=== PATIENT | female | born 1985 | race Caucasian/White ===

== ENCOUNTER 2017-12-15 07:16 | Inpatient (IN) | payer BC ==
[2017-12-15] MEDS ORDERED: ceFAZolin 1 GM in Premix Bag 1 BAG IV ONE (07:31)
[2017-12-15] MEDS ORDERED: Sodium Chloride 0.9% 10 ML Syringe FLUSH PRN ×2 (07:31→11:08)
[2017-12-15] MEDS ORDERED: Sodium Chloride 0.9% 2.5 ML Syringe FLUSH PRN ×2 (07:31→11:08)
[2017-12-15] MEDS ORDERED: Oxytocin/0.9 % Sodium Chloride 30 UNIT/500 ML BAG ONE (07:36)
[2017-12-15] MEDS ORDERED: Citric Acid/Sodium Citrate Solution 30 ML Cup PO SCH (07:45)
[2017-12-15] MEDS ORDERED: Oxytocin/0.9 % Sodium Chloride 30 UNIT/500 ML BAG IV SCH (07:45)
[2017-12-15] MEDS: Lactated Ringers 1,000 ML IV SCH ×2 (08:21→09:22)
[2017-12-15] MEDS ORDERED: Ondansetron 4 MG/2 ML SDV ONE (09:05)
[2017-12-15] MEDS ORDERED: Phenylephrine 1% 10 MG/ML SDV ONE (09:05)
[2017-12-15] MEDS ORDERED: ePHEDrine 50 MG/ML SDV ONE (09:05)
[2017-12-15] MEDS ORDERED: Morphine PF 1 MG/ML Amp ONE (09:05)
--- NOTE | 2017-12-15 09:19 | PCM.PREANE ---
Preanesthetic Assessment - Procedure Proposed Procedure: Repeat - Anesthesia/Transfusion/Family Hx Anesthesia History: Prior Anesthesia Without Reaction Family History of Anesthesia Reaction: No Transfusion History: No Prior Transfusion(s) Intubation History: Unknown - Review of Systems General: Other (usu. with ) Pulmonary: No Symptoms Cardiovascular: No Symptoms Gastrointestinal: No Symptoms Neurological: No Symptoms Other: Reports: None - Physical Assessment NPO Status Date: 12/14/17 NPO Status Time: 22:00 Height: 5 ft 5 in Weight: 160 lb ASA Class: 2 Mental Status: Alert & Oriented x3 Airway Class: Mallampati = 1 Dentition: Reports: Normal Dentition Thyro-Mental Finger Breadths: 3 Mouth Opening Finger Breadths: 3 ROM/Head Extension: Full Lungs: Clear to Auscultation, Normal Respiratory Effort Cardiovascular: Regular Rate, Regular Rhythm, No Murmurs - Lab Values: Laboratory Last Values WBC 12.09 K/uL (4.0-11.0) H 12/15/17 08:10 RBC 3.61 M/uL (4.30-5.90) L 12/15/17 08:10 Hgb 11.4 g/dL (12.0-16.0) L 12/15/17 08:10 Hct 32.3 % (36.0-46.0) L 12/15/17 08:10 MCV 89.5 fL (80.0-98.0) 12/15/17 08:10 MCH 31.6 pg (27.0-32.0) 12/15/17 08:10 MCHC 35.3 g/dL (31.0-37.0) 12/15/17 08:10 RDW Std Deviation 40.9 fl (28.0-62.0) 12/15/17 08:10 RDW Coeff of Jewell 13 % (11.0-15.0) 12/15/17 08:10 Plt Count 181 K/uL (150-400) 12/15/17 08:10 MPV 10.00 fL (7.40-12.00) 12/15/17 08:10 Nucleated RBC % 0.0 /100WBC 12/15/17 08:10 Nucleated RBCs # 0 K/uL 12/15/17 08:10 - Allergies Allergies/Adverse Reactions: Allergies Allergy/AdvReac Type Severity Reaction Status Date / Time No Known Allergies Allergy Verified 12/09/17 09:10 - Blood Blood Available: No - Anesthesia Plan Pre-Op Medication Ordered: None - Acknowledgements Anesthesia Type Planned: Spinal Pt an Appropriate Candidate for the Planned Anesthesia: Yes Alternatives and Risks of Anesthesia Discussed w Pt/Guardian: Yes Pt/Guardian Understands and Agrees with Anesthesia Plan: Yes Additional Comments: prior for breech 15 yr ago. 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: Neurological History: Reports: Migraines - Past Surgical History Head Surgeries/Procedures: Reports: None Female Surgical History: Reports: Breast Implant, Section - SUBSTANCE USE Smoking Status *Q: Never Smoker Recreational Drug Use History: No - HOME MEDS Home Medications: Home Meds Ondansetron 4 mg PO ASDIRECTED PRN 12/09/17 [History] PNV95/Ferrous Fumarate/FA [ Vitamin Tablet] 1 tab PO DAILY 12/09/17 [ History] Ranitidine HCl [Zantac 75] 75 - 150 mg PO ASDIRECTED PRN 12/09/17 [History] - CURRENT (IN HOUSE) MEDS Current Meds: Current Medications Citric Acid/Sodium Citrate (Bicitra Solution) 30 ml PO .ONCE EPIFANIO Lactated Ringer's (Ringers, Lactated) 1,000 mls @ 500 mls/hr IV .BOLUS EPIFANIO Last Admin: 12/15/17 08:21 Dose: 500 mls/hr Oxytocin/Sodium Chloride (Oxytocin 30 Unit/500 Ml-Ns) 30 unit in 500 mls @ 250 mls/hr IV TITRATE EPIFANIO Sodium Chloride (Saline Flush) 10 ml FLUSH ASDIRECTED PRN PRN Reason: Keep Vein Open Sodium Chloride (Saline Flush) 2.5 ml FLUSH ASDIRECTED PRN PRN Reason: Keep Vein Open Discontinued Medications Ephedrine Sulfate (Ephedrine Sulfate) Confirm Administered Dose 50 mg .ROUTE .STK-MED ONE Stop: 12/15/17 09:06 Cefazolin Sodium/Dextrose 1 gm (/ Premix) 50 mls @ 100 mls/hr IV ONETIME ONE Stop: 12/15/17 08:00 Oxytocin/Sodium Chloride (Oxytocin 30 Unit/500 Ml-Ns) Confirm Administered Dose 30 unit in 500 mls @ as directed .ROUTE .STK-MED ONE Stop: 12/15/17 07:37 Cefazolin Sodium/Dextrose (Ancef) Confirm Administered Dose 50 mls @ as directed .ROUTE .STK-MED ONE Stop: 12/15/17 09:09 Morphine Sulfate (Duramorph Pf) Confirm Administered Dose 1 mg .ROUTE .STK-MED ONE Stop: 12/15/17 09:06 Ondansetron HCl (Zofran) Confirm Administered Dose 4 mg .ROUTE .STK-MED ONE Stop: 12/15/17 09:06 Phenylephrine HCl (Binu-Synephrine) Confirm Administered Dose 10 mg .ROUTE .STK- MED ONE Stop: 12/15/17 09:06
--- NOTE | 2017-12-15 09:44 | PCM.POSTAN ---
POST ANESTHESIA ASSESSMENT - MENTAL STATUS Mental Status: Alert, Oriented - RESPIRATORY Respiratory Status: Respiratory Rate WNL, Airway Patent, O2 Saturation Stable - CARDIOVASCULAR CV Status: Pulse Rate WNL, Blood Pressure Stable - GASTROINTESTINAL GI Status: No Symptoms - POST OP HYDRATION Hydration Status: Adequate & Stable
[2017-12-15] MEDS ORDERED: Acetaminophen/oxyCODONE 325-5 MG Tab PO PRN ×2 (10:37→11:08)
[2017-12-15] MEDS ORDERED: Nalbuphine 10 MG/ML 10 ML MDV IVPUSH PRN (10:37)
[2017-12-15] MEDS ORDERED: Naloxone 0.4 MG/ML Syringe IVPUSH PRN (10:37)
[2017-12-15] MEDS ORDERED: Bisacodyl 10 MG Supp RECTAL PRN (11:08)
[2017-12-15] MEDS ORDERED: Ibuprofen 800 MG Tab PO PRN (11:08)
[2017-12-15] MEDS ORDERED: diphenhydrAMINE 50 MG/ML SDV IVPUSH PRN (11:08)
[2017-12-15] MEDS ORDERED: Lanolin 100% Cream 7 GM Tube TOP PRN (11:08)
[2017-12-15] MEDS ORDERED: Ondansetron 4 MG/2 ML SDV IV PRN (11:08)
--- NOTE | 2017-12-15 11:14 | PCM.OPNOTE ---
- General Post-Op/Procedure Note Date of Surgery/Procedure: 12/15/17 Operative Procedure(s): Repeat section Findings: Female , wt 3060grams, Apgars 9 and 9. Grossly normal placenta with 3 vessel cord. Normal uterus, tubes and ovaries Pre Op Diagnosis: 39 weeks, Previous , declined TOLAC Post-Op Diagnosis: Same Anesthesia Technique: Spinal Primary Surgeon: Inocencia De La Rosa Fluid Replacement, Intraop: 1,500 Output, Urine Amount: 50 EBL in mLs: 600 Complications: None Condition: Good
[2017-12-15] MEDS ORDERED: Lactated Ringers 1,000 ML IV SCH (11:15)
[2017-12-15] MEDS: Ketorolac 30 MG/ML SDV IVPUSH SCH (11:24)
--- NOTE | 2017-12-15 13:41 | OR ---
SURGEON: Inocencia De La Rosa MD DATE OF PROCEDURE: 12/15/2017 PREOPERATIVE DIAGNOSES: 1. Term at 39 weeks gestation. 2. Previous section, declined trial of labor after section, TOLAC. POSTOPERATIVE DIAGNOSES: 1. Term at 39 weeks gestation. 2. Previous section, declined trial of labor after section, TOLAC. 3. Delivered. PROCEDURE: Repeat low-transverse section via Pfannenstiel. ANESTHESIA: Spinal. ESTIMATED BLOOD LOSS: 600mLs. IV FLUIDS: 1500 mLs crystalloid. URINE OUTPUT: 55 mLs, clear at the end of the procedure. COMPLICATIONS: None. DISPOSITION: Stable to recovery room. FINDINGS: Female infant, weight 3060 g, score 9 and 9 at 1 and 5 minutes respectively. Grossly normal placenta with 3-vessel cord. The uterus, tubes, ovaries appeared grossly normal. INDICATION: The patient is a 32-year-old, G2, P1 who elected to have a section after 1 previous section, declining trial of labor after section. DESCRIPTION OF PROCEDURE: The patient was taken to the operating room where spinal anesthesia was performed and found to be adequate. She was then prepped and draped in sterile fashion in the dorsal supine position with a leftward tilt. Time-out was held. The patient received 2 g of Ancef and SCDs were in place. The Pfannenstiel incision was then made with a scalpel along her old incision and was carried through to the underlying layer of fascia with the scalpel. The fascia was scored in the midline and the incision was extended laterally with the Trotter scissors. The superior aspect of this fascial incision was grasped with Yu clamps, elevated, and underlying rectus muscles were dissected off with the Trotter. In a similar fashion, the inferior aspect of the fascial incision was grasped with Yu clamps, tented, and rectus muscles were dissected off bluntly with the Trotter's. The rectus muscle was then in the midline and the parietal peritoneum was identified and entered sharply. The parietal peritoneum was then extended upwards and downwards with good visualization of the bladder. A self-retaining Brian O retractor was then placed into the abdominal cavity. The vesicouterine peritoneum was identified, picked up, and entered sharply with the Metzenbaum scissors. This was extended laterally and a bladder flap was created digitally. A low-transverse incision was then made on the uterus and extended upwards and downwards bluntly. Clear amniotic fluid was noted. The 's head was then lifted out of the pelvis and delivered atraumatically followed by the shoulders and the rest of the baby without difficulty. The baby was vigorous and cried spontaneously at . Cord was double clamped and cut and the was handed over to the waiting nursery team. Cord blood and gas samples were obtained. The placenta was then removed spontaneously by uterine massage. It appeared appeared to be complete and intact. The uterus was then cleaned of all clots and debris. The hysterotomy was repaired in 2 layers using 0 Vicryl suture. The first layer was repaired in a running locking fashion and a second imbricating layer was performed to obtain excellent hemostasis. The paracolic gutters were cleared of all clots and debris. Copious irrigation was performed. The Brian O retractor was removed from the abdominal cavity. The hysterotomy site was examined and found to be hemostatic. The edges of the parietal peritoneum were identified and this layer was closed en-mass incorporating the muscular layer in a running fashion with 2-0 Vicryl suture. Subfascial tissue was examined and found to have excellent hemostasis. The fascia was reapproximated with 0 Vicryl in a running fashion. The subcuticular tissue was irrigated and made hemostatic with electrocautery. The skin was then closed with subcuticular stitches of 4-0 Monocryl suture. Sponge, lap, instrument, and needle counts were reported as correct at the end of the procedure. The patient tolerated the procedure well and was taken to the recovery room in a stable condition. The baby was taken to the nursery in a stable condition. SHANNON / JEREMÍAS /[id number] JIL
[2017-12-15] MEDS ORDERED: Nalbuphine 10 MG/1 ML Vial IVPUSH PRN (13:56)
[2017-12-15] MEDS ORDERED: Nalbuphine 10 MG/ML 10 ML MDV ONE (14:06)
[2017-12-15] MEDS: Nalbuphine 10 MG/1 ML Vial IVPUSH PRN (14:10)
[2017-12-16] MEDS: Nalbuphine 10 MG/1 ML Vial IVPUSH PRN ×2 (04:25→09:49)
[2017-12-16] MEDS: Ketorolac 30 MG/ML SDV IVPUSH SCH ×3 (04:54→11:40)
[2017-12-16] MEDS: Docusate Sodium 100 MG Cap PO SCH ×3 (04:54→20:42)
--- NOTE | 2017-12-16 07:17 | PCM48HPAN ---
Post Anesthesia Note - EVALUATION WITHIN 48HRS OF ANESTHETIC Vital Signs in Normal Range: Yes Patient Participated in Evaluation: Yes Respiratory Function Stable: Yes Airway Patent: Yes Cardiovascular Function Stable: Yes Hydration Status Stable: Yes Pain Control Satisfactory: Yes Nausea and Vomiting Control Satisfactory: Yes Mental Status Recovered: Yes Resp Rate: 15
--- NOTE | 2017-12-16 08:15 | PCM.PNPP ---
<Mana Carlisle - Last Filed: 12/16/17 08:12> - General Info Date of Service: 12/16/17 Functional Status: Reports: Pain Controlled, Tolerating Diet, Ambulating, Urinating - Review of Systems General: Denies: Fever, Weakness, Fatigue Pulmonary: Denies: Shortness of Breath, Pleuritic Chest Pain, Cough Cardiovascular: Denies: Chest Pain, Palpitations, Dyspnea on Exertion Gastrointestinal: Denies: Abdominal Pain Genitourinary: Denies: Dysuria Psychiatric: Reports: No Symptoms - General Info Date of Service: 12/16/17 - Patient Data Vital Signs - Most Recent: Last Vital Signs Temp 36.8 C 12/16/17 04:00 Pulse 74 12/16/17 06:00 Resp 15 12/16/17 07:17 BP 109/61 12/16/17 04:00 Pulse Ox 93 L 12/16/17 06:00 Weight - Most Recent: 160 lb I&O - Last 24 Hours: Intake & Output 12/15/17 12/16/17 12/16/17 22:59 06:59 14:59 Intake Total 1843 Output Total 775 Balance 1068 Lab Results - Last 24 Hours: Laboratory Results - last 24 hr 12/15/17 12/15/17 12/15/17 Range/Units 08:10 08:14 10:16 WBC 12.09 H (4.0-11.0) K/uL RBC 3.61 L (4.30-5.90) M/uL Hgb 11.4 L (12.0-16.0) g/dL Hct 32.3 L (36.0-46.0) % MCV 89.5 (80.0-98.0) fL MCH 31.6 (27.0-32.0) pg MCHC 35.3 (31.0-37.0) g/dL RDW Std Deviation 40.9 (28.0-62.0) fl RDW Coeff of Jewell 13 (11.0-15.0) % Plt Count 181 (150-400) K/uL MPV 10.00 (7.40-12.00) fL Nucleated RBC % 0.0 /100WBC Nucleated RBCs # 0 K/uL Cord ABG pH 7.283 (7.18-7.38) Cord ABG Base Excess -6 (-10--2) Cord VBG pH 7.355 (7.25-7.45) Cord VBG Base Excess -6 (-10--2) Blood Type O NEGATIVE Antibody Screen POSITIVE Antibody Identification Anti-D 12/16/17 Range/Units 05:35 WBC (4.0-11.0) K/uL RBC (4.30-5.90) M/uL Hgb 9.9 L (12.0-16.0) g/dL Hct 27.8 L (36.0-46.0) % MCV (80.0-98.0) fL MCH (27.0-32.0) pg MCHC (31.0-37.0) g/dL RDW Std Deviation (28.0-62.0) fl RDW Coeff of Jewell (11.0-15.0) % Plt Count (150-400) K/uL MPV (7.40-12.00) fL Nucleated RBC % /100WBC Nucleated RBCs # K/uL Cord ABG pH (7.18-7.38) Cord ABG Base Excess (-10--2) Cord VBG pH (7.25-7.45) Cord VBG Base Excess (-10--2) Blood Type Antibody Screen Antibody Identification Med Orders - Current: Current Medications Bisacodyl (Dulcolax) 10 mg RECTAL .ONCE PRN PRN Reason: Constipation Diphenhydramine HCl (Benadryl) 25 mg IVPUSH Q6H PRN PRN Reason: Itching or Nausea Last Admin: 12/15/17 12:31 Dose: 25 mg Docusate Sodium (Colace) 100 mg PO BID [facility] Last Admin: 12/16/17 04:54 Dose: Not Given Emollient Ointment (Lansinoh Hpa) 0 gm TOP ASDIRECTED PRN PRN Reason: Sore Nipples Lactated Ringer's (Ringers, Lactated) 1,000 mls @ 125 mls/hr IV ASDIRECTED EPIFANIO Ibuprofen (Motrin) 800 mg PO Q8H PRN PRN Reason: mild pain or fever Ketorolac Tromethamine (Toradol) 30 mg IVPUSH Q6H [facility] Stop: 12/16/17 11:16 Last Admin: 12/16/17 05:18 Dose: 30 mg Nalbuphine HCl (Nubain) 5 mg IVPUSH Q3H PRN PRN Reason: Itching/Pain Last Admin: 12/16/17 04:25 Dose: 5 mg Nalbuphine HCl (Nubain) 5 mg IVPUSH Q3H PRN PRN Reason: Itching Ondansetron HCl (Zofran) 4 mg IV Q4H PRN PRN Reason: Nausea/Vomiting Oxycodone/Acetaminophen (Percocet 325-5 Mg) 1 tab PO Q4HR PRN PRN Reason: Breakthrough Pain Oxycodone/Acetaminophen (Percocet 325-5 Mg) 1 tab PO Q4H PRN PRN Reason: Pain (moderate 4-6) Oxycodone/Acetaminophen (Percocet 325-5 Mg) 2 tab PO Q4H PRN PRN Reason: Pain (moderate 4-6) Sodium Chloride (Saline Flush) 10 ml FLUSH ASDIRECTED PRN PRN Reason: Keep Vein Open Sodium Chloride (Saline Flush) 2.5 ml FLUSH ASDIRECTED PRN PRN Reason: Keep Vein Open Discontinued Medications Citric Acid/Sodium Citrate (Bicitra Solution) 30 ml PO .ONCE EPIFANIO Last Admin: 12/15/17 09:38 Dose: 30 ml Ephedrine Sulfate (Ephedrine Sulfate) Confirm Administered Dose 50 mg .ROUTE .STK-MED ONE Stop: 12/15/17 09:06 Cefazolin Sodium/Dextrose 1 gm (/ Premix) 50 mls @ 100 mls/hr IV ONETIME ONE Stop: 12/15/17 08:00 Last Admin: 12/16/17 04:55 Dose: Not Given Lactated Ringer's (Ringers, Lactated) 1,000 mls @ 500 mls/hr IV .BOLUS EPIFANIO Last Admin: 12/15/17 09:22 Dose: 500 mls/hr Oxytocin/Sodium Chloride (Oxytocin 30 Unit/500 Ml-Ns) 30 unit in 500 mls @ 250 mls/hr IV TITRATE EPIFANIO Oxytocin/Sodium Chloride (Oxytocin 30 Unit/500 Ml-Ns) Confirm Administered Dose 30 unit in 500 mls @ as directed .ROUTE .STK-MED ONE Stop: 12/15/17 07:37 Last Admin: 12/16/17 04:55 Dose: Not Given Cefazolin Sodium/Dextrose (Ancef) Confirm Administered Dose 50 mls @ as directed .ROUTE .STK-MED ONE Stop: 12/15/17 09:09 Lidocaine HCl (Xylocaine-Mpf 1%) 5 ml EPIDUR .STK-MED ONE Stop: 12/15/17 10:03 Morphine Sulfate (Duramorph Pf) Confirm Administered Dose 1 mg .ROUTE .STK-MED ONE Stop: 12/15/17 09:06 Nalbuphine HCl (Nubain) 2.5 mg IVPUSH Q3H PRN PRN Reason: Pruritis Stop: 12/16/17 10:38 Nalbuphine HCl (Nubain) Confirm Administered Dose 100 mg .ROUTE .STK-MED ONE Stop: 12/15/17 14:07 Last Admin: 12/16/17 04:53 Dose: Not Given Naloxone HCl (Narcan) 0.1 mg IVPUSH ONETIME PRN PRN Reason: if RR <6 WITH STIMULATION Stop: 12/16/17 10:38 Ondansetron HCl (Zofran) Confirm Administered Dose 4 mg .ROUTE .STK-MED ONE Stop: 12/15/17 09:06 Phenylephrine HCl (Binu-Synephrine) Confirm Administered Dose 10 mg .ROUTE .STK- MED ONE Stop: 12/15/17 09:06 Sodium Chloride (Saline Flush) 10 ml FLUSH ASDIRECTED PRN PRN Reason: Keep Vein Open Sodium Chloride (Saline Flush) 2.5 ml FLUSH ASDIRECTED PRN PRN Reason: Keep Vein Open - Interaction Infant Disposition, : [place] in Room with Family Interaction: Holding Infant Feeding: Attempted ; Nursed Fair/Poor Support Person: Significant Other - Recovery Exam Fundal Tone: Firm Fundal Level: 2 Fingerbreadths Below Umbilicus Fundal Placement: Midline Lochia Amount: Scant Lochia Color: Rubra/Red Perineum Description: Intact, Minimal Bruising/Swelling Episiotomy/Laceration: None Bladder Status: Indwelling Catheter in Place Urinary Elimination: Indwelling Catheter - Exam General: Alert, Oriented Neck: Supple Lungs: Clear to Auscultation, Normal Respiratory Effort Cardiovascular: Regular Rate, Regular Rhythm GI/Abdominal Exam: Normal Bowel Sounds, Soft, Non-Tender, No Distention Extremities: Normal Inspection, Normal Capillary Refill, Pedal Edema (trace) Skin: Warm, Dry, Intact Psy/Mental Status: Alert, Normal Affect, Normal Mood - Assessment Assessment:: POD #1 s/p RLTCS. Minimal pain and lochia. Breast feeding well. Anticipate discharge tomorrow. - Plan Plan:: Continue routine post-op cares. Aim for discharge home tomorrow. <Inocencia De La Rosa - Last Filed: 12/16/17 08:48> - Patient Data Vital Signs - Most Recent: Last Vital Signs Temp 36.8 C 12/16/17 04:00 Pulse 74 12/16/17 06:00 Resp 15 12/16/17 07:17 BP 109/61 12/16/17 04:00 Pulse Ox 93 L 12/16/17 06:00 I&O - Last 24 Hours: Intake & Output 12/15/17 12/16/17 12/16/17 22:59 06:59 14:59 Intake Total 1843 Output Total 775 Balance 1068 Lab Results - Last 24 Hours: Laboratory Results - last 24 hr 12/15/17 12/15/17 12/16/17 Range/Units 08:14 10:16 05:35 Hgb 9.9 L (12.0-16.0) g/dL Hct 27.8 L (36.0-46.0) % Cord ABG pH 7.283 (7.18-7.38) Cord ABG Base Excess -6 (-10--2) Cord VBG pH 7.355 (7.25-7.45) Cord VBG Base Excess -6 (-10--2) Blood Type O NEGATIVE Antibody Screen POSITIVE Antibody Identification Anti-D Med Orders - Current: Current Medications Bisacodyl (Dulcolax) 10 mg RECTAL .ONCE PRN PRN Reason: Constipation Diphenhydramine HCl (Benadryl) 25 mg IVPUSH Q6H PRN PRN Reason: Itching or Nausea Last Admin: 12/15/17 12:31 Dose: 25 mg Docusate Sodium (Colace) 100 mg PO BID EPIFANIO Last Admin: 12/16/17 04:54 Dose: Not Given Emollient Ointment (Lansinoh Hpa) 0 gm TOP ASDIRECTED PRN PRN Reason: Sore Nipples Lactated Ringer's (Ringers, Lactated) 1,000 mls @ 125 mls/hr IV ASDIRECTED EPIFANIO Ibuprofen (Motrin) 800 mg PO Q8H PRN PRN Reason: mild pain or fever Ketorolac Tromethamine (Toradol) 30 mg IVPUSH Q6H [facility] Stop: 12/16/17 11:16 Last Admin: 12/16/17 05:18 Dose: 30 mg Nalbuphine HCl (Nubain) 5 mg IVPUSH Q3H PRN PRN Reason: Itching/Pain Last Admin: 12/16/17 04:25 Dose: 5 mg Nalbuphine HCl (Nubain) 5 mg IVPUSH Q3H PRN PRN Reason: Itching Ondansetron HCl (Zofran) 4 mg IV Q4H PRN PRN Reason: Nausea/Vomiting Oxycodone/Acetaminophen (Percocet 325-5 Mg) 1 tab PO Q4HR PRN PRN Reason: Breakthrough Pain Oxycodone/Acetaminophen (Percocet 325-5 Mg) 1 tab PO Q4H PRN PRN Reason: Pain (moderate 4-6) Oxycodone/Acetaminophen (Percocet 325-5 Mg) 2 tab PO Q4H PRN PRN Reason: Pain (moderate 4-6) Sodium Chloride (Saline Flush) 10 ml FLUSH ASDIRECTED PRN PRN Reason: Keep Vein Open Sodium Chloride (Saline Flush) 2.5 ml FLUSH ASDIRECTED PRN PRN Reason: Keep Vein Open Discontinued Medications Citric Acid/Sodium Citrate (Bicitra Solution) 30 ml PO .ONCE [facility] Last Admin: 12/15/17 09:38 Dose: 30 ml Ephedrine Sulfate (Ephedrine Sulfate) Confirm Administered Dose 50 mg .ROUTE .STK-MED ONE Stop: 12/15/17 09:06 Cefazolin Sodium/Dextrose 1 gm (/ Premix) 50 mls @ 100 mls/hr IV ONETIME ONE Stop: 12/15/17 08:00 Last Admin: 12/16/17 04:55 Dose: Not Given Lactated Ringer's (Ringers, Lactated) 1,000 mls @ 500 mls/hr IV .BOLUS [facility] Last Admin: 12/15/17 09:22 Dose: 500 mls/hr Oxytocin/Sodium Chloride (Oxytocin 30 Unit/500 Ml-Ns) 30 unit in 500 mls @ 250 mls/hr IV TITRATE EPIFANIO Oxytocin/Sodium Chloride (Oxytocin 30 Unit/500 Ml-Ns) Confirm Administered Dose 30 unit in 500 mls @ as directed .ROUTE .STK-MED ONE Stop: 12/15/17 07:37 Last Admin: 12/16/17 04:55 Dose: Not Given Cefazolin Sodium/Dextrose (Ancef) Confirm Administered Dose 50 mls @ as directed .ROUTE .STK-MED ONE Stop: 12/15/17 09:09 Lidocaine HCl (Xylocaine-Mpf 1%) 5 ml EPIDUR .STK-MED ONE Stop: 12/15/17 10:03 Morphine Sulfate (Duramorph Pf) Confirm Administered Dose 1 mg .ROUTE .STK-MED ONE Stop: 12/15/17 09:06 Nalbuphine HCl (Nubain) 2.5 mg IVPUSH Q3H PRN PRN Reason: Pruritis Stop: 12/16/17 10:38 Nalbuphine HCl (Nubain) Confirm Administered Dose 100 mg .ROUTE .STK-MED ONE Stop: 12/15/17 14:07 Last Admin: 12/16/17 04:53 Dose: Not Given Naloxone HCl (Narcan) 0.1 mg IVPUSH ONETIME PRN PRN Reason: if RR <6 WITH STIMULATION Stop: 12/16/17 10:38 Ondansetron HCl (Zofran) Confirm Administered Dose 4 mg .ROUTE .STK-MED ONE Stop: 12/15/17 09:06 Phenylephrine HCl (Binu-Synephrine) Confirm Administered Dose 10 mg .ROUTE .STViva la Vita- MED ONE Stop: 12/15/17 09:06 Sodium Chloride (Saline Flush) 10 ml FLUSH ASDIRECTED PRN PRN Reason: Keep Vein Open Sodium Chloride (Saline Flush) 2.5 ml FLUSH ASDIRECTED PRN PRN Reason: Keep Vein Open - Infant Interaction Infant Feeding: Attempted ; Nursed Fair/Poor (Baby has a cyst underneath the tonuge) - Problem List & Annotations (1) delivery delivered SNOMED Code(s): 481232309 Code(s): O82 - ENCOUNTER FOR DELIVERY WITHOUT INDICATION Status: Acute Current Visit: Yes - Problem List Review Problem List Initiated/Reviewed/Updated: Yes - My Orders Last 24 Hours: My Active Orders 12/15/17 11:08 Patient Status [ADT] Routine Ambulate [RC] PER UNIT ROUTINE Communication Order [RC] PER UNIT ROUTINE Communication Order [RC] PER UNIT ROUTINE Communication Order [RC] Per Unit Routine May Shower [RC] ASDIRECTED RT Incentive Spirometry [RC] Q2HWA Urinary Catheter Removal [RC] Per Unit Routine Vital Signs [RC] PER UNIT ROUTINE Acetaminophen/oxyCODONE [Percocet 325-5 MG] 1 tab PO Q4H PRN Acetaminophen/oxyCODONE [Percocet 325-5 MG] 2 tab PO Q4H PRN Bisacodyl [Dulcolax] 10 mg RECTAL .ONCE PRN Ibuprofen [Motrin] 800 mg PO Q8H PRN Lanolin [Lansinoh HPA] See Dose Instructions TOP ASDIRECTED PRN Ondansetron [Zofran] 4 mg IV Q4H PRN Sodium Chloride 0.9% [Saline Flush] 10 ml FLUSH ASDIRECTED PRN Sodium Chloride 0.9% [Saline Flush] 2.5 ml FLUSH ASDIRECTED PRN diphenhydrAMINE [Benadryl] 25 mg IVPUSH Q6H PRN Abdominal Binder [OM.PC] Routine Assess Lochia [WOMSER] Per Unit Routine Assess Uterine Involution [WOMSER] Per Unit Routine Breast Pump [WOMSER] Per Unit Routine Peripheral IV Discontinue [OM.PC] Routine Saline Lock Insert [OM.PC] Routine Sequential Compression Device [OM.PC] Per Unit Routine Resuscitation Status Routine 12/15/17 11:09 Intake and Output [RC] Q4H Notify Provider Intake and Out [RC] ASDIRECTED Notify Provider Vital Signs [RC] ASDIRECTED 12/15/17 11:15 Ketorolac [Toradol] 30 mg IVPUSH Q6H Lactated Ringers [Ringers, Lactated] 1,000 ml IV ASDIRECTED 12/15/17 21:00 Docusate Sodium [Colace] 100 mg PO BID 12/15/17 Dinner Regular Diet [DIET]
[2017-12-17] MEDS: Acetaminophen/oxyCODONE 325-5 MG Tab PO PRN ×2 (04:04→11:28)
[2017-12-17] MEDS: Docusate Sodium 100 MG Cap PO SCH (08:16)
--- NOTE | 2017-12-17 09:08 | PCM.PNPP ---
- General Info Date of Service: 12/17/17 Functional Status: Reports: Pain Controlled, Tolerating Diet, Ambulating, Urinating - Review of Systems General: Denies: Fever, Weakness, Malaise, Chills HEENT: Denies: Headaches Pulmonary: Denies: Shortness of Breath, Pleuritic Chest Pain, Cough Cardiovascular: Denies: Chest Pain, Palpitations, Dyspnea on Exertion Gastrointestinal: Reports: Constipation. Denies: Abdominal Pain Genitourinary: Denies: Dysuria, Burning, Flank Pain Musculoskeletal: Reports: No Symptoms Skin: Reports: No Symptoms Neurological: Reports: No Symptoms Psychiatric: Reports: No Symptoms - General Info Date of Service: 12/17/17 - Patient Data Vital Signs - Most Recent: Last Vital Signs Temp 36.0 C 12/17/17 08:00 Pulse 61 12/17/17 08:00 Resp 18 12/17/17 08:00 BP 105/70 12/17/17 08:00 Pulse Ox 100 12/17/17 08:00 Weight - Most Recent: 160 lb I&O - Last 24 Hours: Intake & Output 12/16/17 12/17/17 12/17/17 22:59 06:59 14:59 Intake Total 1600 800 Balance 1600 800 Med Orders - Current: Current Medications Bisacodyl (Dulcolax) 10 mg RECTAL .ONCE PRN PRN Reason: Constipation Diphenhydramine HCl (Benadryl) 25 mg IVPUSH Q6H PRN PRN Reason: Itching or Nausea Last Admin: 12/15/17 12:31 Dose: 25 mg Docusate Sodium (Colace) 100 mg PO BID [facility] Last Admin: 12/17/17 08:16 Dose: Not Given Emollient Ointment (Lansinoh Hpa) 0 gm TOP ASDIRECTED PRN PRN Reason: Sore Nipples Last Admin: 12/16/17 19:30 Dose: 7 gm Lactated Ringer's (Ringers, Lactated) 1,000 mls @ 125 mls/hr IV ASDIRECTED [facility] Ibuprofen (Motrin) 800 mg PO Q8H PRN PRN Reason: mild pain or fever Nalbuphine HCl (Nubain) 5 mg IVPUSH Q3H PRN PRN Reason: Itching/Pain Last Admin: 12/16/17 09:49 Dose: 5 mg Nalbuphine HCl (Nubain) 5 mg IVPUSH Q3H PRN PRN Reason: Itching Ondansetron HCl (Zofran) 4 mg IV Q4H PRN PRN Reason: Nausea/Vomiting Oxycodone/Acetaminophen (Percocet 325-5 Mg) 1 tab PO Q4HR PRN PRN Reason: Breakthrough Pain Last Admin: 12/16/17 19:30 Dose: 1 tab Oxycodone/Acetaminophen (Percocet 325-5 Mg) 1 tab PO Q4H PRN PRN Reason: Pain (moderate 4-6) Last Admin: 12/16/17 15:00 Dose: 1 tab Oxycodone/Acetaminophen (Percocet 325-5 Mg) 2 tab PO Q4H PRN PRN Reason: Pain (moderate 4-6) Last Admin: 12/17/17 04:04 Dose: 2 tab Sodium Chloride (Saline Flush) 10 ml FLUSH ASDIRECTED PRN PRN Reason: Keep Vein Open Sodium Chloride (Saline Flush) 2.5 ml FLUSH ASDIRECTED PRN PRN Reason: Keep Vein Open Discontinued Medications Citric Acid/Sodium Citrate (Bicitra Solution) 30 ml PO .ONCE EPIFANIO Last Admin: 12/15/17 09:38 Dose: 30 ml Ephedrine Sulfate (Ephedrine Sulfate) Confirm Administered Dose 50 mg .ROUTE .STK-MED ONE Stop: 12/15/17 09:06 Cefazolin Sodium/Dextrose 1 gm (/ Premix) 50 mls @ 100 mls/hr IV ONETIME ONE Stop: 12/15/17 08:00 Last Admin: 12/16/17 04:55 Dose: Not Given Lactated Ringer's (Ringers, Lactated) 1,000 mls @ 500 mls/hr IV .BOLUS EPIFANIO Last Admin: 12/15/17 09:22 Dose: 500 mls/hr Oxytocin/Sodium Chloride (Oxytocin 30 Unit/500 Ml-Ns) 30 unit in 500 mls @ 250 mls/hr IV TITRATE EPIFANIO Oxytocin/Sodium Chloride (Oxytocin 30 Unit/500 Ml-Ns) Confirm Administered Dose 30 unit in 500 mls @ as directed .ROUTE .STK-MED ONE Stop: 12/15/17 07:37 Last Admin: 12/16/17 04:55 Dose: Not Given Cefazolin Sodium/Dextrose (Ancef) Confirm Administered Dose 50 mls @ as directed .ROUTE .STK-MED ONE Stop: 12/15/17 09:09 Ketorolac Tromethamine (Toradol) 30 mg IVPUSH Q6H EPIFANIO Stop: 12/16/17 11:16 Last Admin: 12/16/17 11:40 Dose: 30 mg Lidocaine HCl (Xylocaine-Mpf 1%) 5 ml EPIDUR .STK-MED ONE Stop: 12/15/17 10:03 Morphine Sulfate (Duramorph Pf) Confirm Administered Dose 1 mg .ROUTE .STK-MED ONE Stop: 12/15/17 09:06 Nalbuphine HCl (Nubain) 2.5 mg IVPUSH Q3H PRN PRN Reason: Pruritis Stop: 12/16/17 10:38 Nalbuphine HCl (Nubain) Confirm Administered Dose 100 mg .ROUTE .STK-MED ONE Stop: 12/15/17 14:07 Last Admin: 12/16/17 04:53 Dose: Not Given Naloxone HCl (Narcan) 0.1 mg IVPUSH ONETIME PRN PRN Reason: if RR <6 WITH STIMULATION Stop: 12/16/17 10:38 Ondansetron HCl (Zofran) Confirm Administered Dose 4 mg .ROUTE .STK-MED ONE Stop: 12/15/17 09:06 Phenylephrine HCl (Binu-Synephrine) Confirm Administered Dose 10 mg .ROUTE .STK- MED ONE Stop: 12/15/17 09:06 Sodium Chloride (Saline Flush) 10 ml FLUSH ASDIRECTED PRN PRN Reason: Keep Vein Open Sodium Chloride (Saline Flush) 2.5 ml FLUSH ASDIRECTED PRN PRN Reason: Keep Vein Open - Interaction Disposition, : [place] in Room with Family Infant Interaction: Holding Infant Infant Feeding: Attempted ; Nursed Fair/Poor (Baby has a cyst underneath the tonuge) Support Person: Significant Other - Recovery Exam Fundal Tone: Firm Fundal Level: 1 Fingerbreadths Below Umbilicus Fundal Placement: Midline Lochia Amount: Scant Lochia Color: Rubra/Red Perineum Description: Intact, Minimal Bruising/Swelling Episiotomy/Laceration: None Bladder Status: Voiding - Exam General: Alert, Oriented Neck: Supple Lungs: Clear to Auscultation, Normal Respiratory Effort Cardiovascular: Regular Rate, Regular Rhythm GI/Abdominal Exam: Normal Bowel Sounds, Soft, Non-Tender Extremities: Non-Tender, Pedal Edema Wound/Incisions: Healing Well Psy/Mental Status: Alert, Normal Affect, Normal Mood - Problem List & Annotations (1) delivery delivered SNOMED Code(s): 088729727 Code(s): O82 - ENCOUNTER FOR DELIVERY WITHOUT INDICATION Status: Acute Current Visit: Yes - Problem List Review Problem List Initiated/Reviewed/Updated: Yes - Assessment Assessment:: POD #2 s/p RLTCS. Minimal pain and lochia. Breast feeding well. Discharge today - Plan Plan:: Discharge instructions reviewed Nothing in the vagina for 6 weeks Continue PNV OTC pain meds for pain PRN blues vs depression symptoms reviewed Follow up in 2 and 6 weeks
[2017-12-17] MEDS ORDERED: Magnesium Hydroxide 400 MG/5 ML Susp 30 ML Cup PO ONE (09:17)
== END 2017-12-17 13:05 | disposition home or self-care (01) | DRG 540 ==
LOC: MW.OB 07:16
PROVIDERS: ADMIT Obstetrics & Gynecology; ATTEND Obstetrics & Gynecology
PROC: 10D00Z1 Extraction of Products of Conception, Low, Open Approach (ICD-10-PCS; principal; 2017-12-15)
DX: O34.211 Maternal care for low transverse scar from previous cesarean delivery (principal); Z3A.39 39 weeks gestation of pregnancy; Z37.0 Single live birth
CPT/HCPCS: 36415; 59025; 82803; 85014; 85018; 85027; 86850; 86870; 86900; 86901; A9270-GY; J0690; J1200; J1885; J2274; J2300; J2370; J2405; J7120

== ENCOUNTER 2019-04-27 00:17 | Inpatient (IN) | payer BC ==
[2019-04-27] MEDS ORDERED: Sodium Chloride 0.9% 2.5 ML Syringe FLUSH PRN ×2 (01:05→03:51)
[2019-04-27] MEDS ORDERED: Citric Acid/Sodium Citrate Solution 30 ML Cup PO ONE (01:05)
[2019-04-27] MEDS ORDERED: ceFAZolin 2 GM in Premix Bag 1 BAG IV ONE (01:05)
[2019-04-27] MEDS ORDERED: Sodium Chloride 0.9% 10 ML SDV IV PRN (01:05)
[2019-04-27] MEDS ORDERED: Sodium Chloride 0.9% 10 ML Syringe FLUSH PRN ×2 (01:05→03:51)
[2019-04-27] MEDS ORDERED: Oxytocin/0.9 % Sodium Chloride 30 UNIT/500 ML BAG IV SCH (01:15)
[2019-04-27] MEDS ORDERED: Lactated Ringers 1,000 ML IV SCH (01:15)
[2019-04-27] MEDS ORDERED: Ondansetron 4 MG/2 ML SDV ONE (01:49)
[2019-04-27] MEDS ORDERED: Oxytocin 10 Units/1 ML SDV ONE (01:49)
--- NOTE | 2019-04-27 01:50 | PCM.PREANE ---
Preanesthetic Assessment - Anesthesia/Transfusion/Family Hx Anesthesia History: Prior Anesthesia Without Reaction Family History of Anesthesia Reaction: No Transfusion History: No Prior Transfusion(s) Intubation History: Unknown - Review of Systems General: No Symptoms Pulmonary: No Symptoms Cardiovascular: No Symptoms Gastrointestinal: No Symptoms Neurological: No Symptoms Other: Reports: None - Physical Assessment Height: 5 ft 5 in Weight: 775.643 kg ASA Class: 2 Mental Status: Alert & Oriented x3 Airway Class: Mallampati = 3 Dentition: Reports: Normal Dentition (braces) ROM/Head Extension: Full Lungs: Clear to Auscultation, Normal Respiratory Effort Cardiovascular: Regular Rate, Regular Rhythm - Lab Values: Laboratory Last Values WBC 10.42 K/uL (4.0-11.0) 04/27/19 01:27 RBC 3.62 M/uL (4.30-5.90) L 04/27/19 01:27 Hgb 10.5 g/dL (12.0-16.0) L 04/27/19 01:27 Hct 31.4 % (36.0-46.0) L 04/27/19 01:27 MCV 86.7 fL (80.0-98.0) 04/27/19 01:27 MCH 29.0 pg (27.0-32.0) 04/27/19 01:27 MCHC 33.4 g/dL (31.0-37.0) 04/27/19 01:27 RDW Std Deviation 40.7 fl (28.0-62.0) 04/27/19 01:27 RDW Coeff of Jewell 13 % (11.0-15.0) 04/27/19 01:27 Plt Count 212 K/uL (150-400) 04/27/19 01:27 MPV 10.80 fL (7.40-12.00) 04/27/19 01:27 Nucleated RBC % 0.0 /100WBC 04/27/19 01:27 Nucleated RBCs # 0 K/uL 04/27/19 01:27 - Allergies Allergies/Adverse Reactions: Allergies Allergy/AdvReac Type Severity Reaction Status Date / Time No Known Allergies Allergy Verified 12/15/17 11:35 - Blood Blood Available: No - Anesthesia Plan Pre-Op Medication Ordered: None - Acknowledgements Anesthesia Type Planned: Spinal Pt an Appropriate Candidate for the Planned Anesthesia: Yes Alternatives and Risks of Anesthesia Discussed w Pt/Guardian: Yes Pt/Guardian Understands and Agrees with Anesthesia Plan: Yes Additional Comments: 38.5 weeks, scheduled for elective repear c section in 4 days, presents in labor tonight. Has had prior spinals without problem. no problems during this except pro;longued nausea for which she takes zofran. last food 6 pm ( 6 hr ago) had chocolate milk at 730 pm. NKDA. back and skin over back is normal. PLAN: spinal with duramorph PreAnesthesia Questionnaire HEENT History: Reports: Other (See Below) Other HEENT History: wears glasses Gastrointestinal History: Reports: GERD Genitourinary History: Reports: None [employer] History: Reports: Neurological History: Reports: Migraines - Infectious Disease History Infectious Disease History: Reports: Chicken Pox - Past Surgical History Head Surgeries/Procedures: Reports: None Female Surgical History: Reports: Breast Implant, Section - HOME MEDS Home Medications: Home Meds Ondansetron [Zofran] 4 mg PO Q6H 04/05/19 [History] Pnv No.95/Ferrous Fum/Folic AC [ Caplet] 1 each PO DAILY 04/05/19 [ History] - CURRENT (IN HOUSE) MEDS Current Meds: Current Medications Lactated Ringer's (Ringers, Lactated) 1,000 mls @ 500 mls/hr IV BOLUS EPIFANIO Last Admin: 04/27/19 01:39 Dose: 500 mls/hr Oxytocin/Sodium Chloride (Oxytocin 30 Unit/500 Ml-Ns) 30 unit in 500 mls @ 250 mls/hr IV TITRATE EPIFANIO Sodium Chloride (Saline Flush) 10 ml FLUSH ASDIRECTED PRN PRN Reason: Keep Vein Open Sodium Chloride (Saline Flush) 2.5 ml FLUSH ASDIRECTED PRN PRN Reason: Keep Vein Open Sodium Chloride (Normal Saline) 10 ml IV ASDIRECTED PRN PRN Reason: IV Use Discontinued Medications Citric Acid/Sodium Citrate (Bicitra Solution) 30 ml PO ONETIME ONE Stop: 04/27/19 01:06 Cefazolin Sodium/Dextrose 2 gm (/ Premix) 50 mls @ 100 mls/hr IV ONETIME ONE Stop: 04/27/19 01:34
[2019-04-27] MEDS ORDERED: Morphine PF 10 MG/10 ML SDV ONE (01:52)
[2019-04-27] MEDS ORDERED: fentaNYL 100 MCG/2 ML SDV IVPUSH PRN (01:53)
[2019-04-27] MEDS ORDERED: Acetaminophen/oxyCODONE 325-5 MG Tab PO PRN ×2 (01:53→03:51)
[2019-04-27] MEDS ORDERED: Phenylephrine/Normal Saline 100 MCG/ML 10 ML Syringe ONE (02:31)
[2019-04-27] MEDS ORDERED: ceFAZolin/Dextrose,Iso-Osmotic 2 GM/50 ML Duplex Bag IV ONE (02:31)
[2019-04-27] MEDS ORDERED: fentaNYL 100 MCG/2 ML SDV ONE (02:45)
[2019-04-27] MEDS ORDERED: diphenhydrAMINE 50 MG/ML SDV IVPUSH PRN (03:51)
[2019-04-27] MEDS ORDERED: Methylergonovine 0.2 MG/1 ML Amp IM PRN (03:51)
[2019-04-27] MEDS ORDERED: Tranexamic Acid 1,000 MG in Sodium Chloride 0.9% 100 ML IV PRN (03:51)
[2019-04-27] MEDS ORDERED: Misoprostol 200 MCG Tab RECTAL PRN (03:51)
[2019-04-27] MEDS ORDERED: Bisacodyl 10 MG Supp RECTAL PRN (03:51)
--- NOTE | 2019-04-27 04:15 | PCM.POSTAN ---
POST ANESTHESIA ASSESSMENT - MENTAL STATUS Mental Status: Alert, Oriented - VITAL SIGNS Vital Signs: Last Vital Signs Temp 36.2 C 04/27/19 03:26 Pulse 66 04/27/19 04:02 Resp 14 04/27/19 04:02 BP 107/62 04/27/19 04:02 Pulse Ox 98 04/27/19 04:02 - RESPIRATORY Respiratory Status: Respiratory Rate WNL, Airway Patent, O2 Saturation Stable - CARDIOVASCULAR CV Status: Pulse Rate WNL, Blood Pressure Stable - GASTROINTESTINAL GI Status: No Symptoms - PAIN Pain Score: 0 - POST OP HYDRATION Hydration Status: Adequate & Stable
[2019-04-27] MEDS: Nalbuphine 10 MG/1 ML Vial IVPUSH PRN ×2 (05:56→21:33)
[2019-04-27] MEDS: Lactated Ringers 1,000 ML IV SCH ×2 (05:56→08:21)
[2019-04-27] MEDS ORDERED: Ondansetron 4 MG/2 ML SDV IVPUSH PRN (06:31)
--- NOTE | 2019-04-27 08:08 | OR ---
SURGEON: Cody Fields MD DATE OF PROCEDURE: 04/27/2019 INDICATIONS: The patient is a 33-year-old, -0-0-2, at 38 weeks and 4 days , presenting with spontaneous rupture of membranes and contractions. The patient had 2 prior low-transverse sections.Reviewed risks and benefits of trial of labor after section versus repeat section, she desires to have repeat . PREOPERATIVE DIAGNOSES: 1. [place] Intrauterine at 38 weeks 4 days. 2. Prior section x2. 3. Spontaneous rupture of membranes. POSTOPERATIVE DIAGNOSES: 1. [place] Intrauterine at 38 weeks 4 days. 2. Prior section x2. 3. Spontaneous rupture of membranes. PROCEDURE PERFORMED: Low-transverse section. ANESTHESIOLOGIST: Dr. Benoit Plaza. ANESTHESIA: Spinal. FINDINGS: [place] intrauterine in cephalic presentation. Male fetus. score of 8 and 9. Weight 3300g. Normal-appearing uterus, bilateral fallopian tubes and ovaries. Filmy intraperitoneal adhesions anterior to the uterus. ESTIMATED BLOOD LOSS: 700 mL. DESCRIPTION OF PROCEDURE: Procedure was explained to the patient and consent was signed. The patient was brought to the operating room. She received 2 g Ancef IV and pneumatic stockings. Spinal anesthesia was placed, and Goodman catheter was placed. The abdomen was prepped with chlorhexidine in a sterile fashion, then draped and tested for anesthesia. Spinal was found to be adequate. Pfannenstiel incision was made at the site of previous incision and dissected down to fascia. The fascia was cleared of subcutaneous tissue. The fascia was incised in the midline with scalpel and extended laterally with curved Trotter scissors. Yu clamps were placed on the superior fascial edge. The rectus muscles were by blunt dissection and using Trotter scissors. Same process was repeated on the inferior fascial edge. Rectus muscle was at the midline. Peritoneum was grasped with hemostats, then carefully dissected and extended with Metzenbaum scissors and bluntly. Filmy intra-peritoneal adhesion was noted anterior to the uterus and with the bladder. Metzenbaum scissors was used to dissect away the vesicouterine peritoneum and bladder pushed away from the lower uterine segment. Brian retractor was placed in the abdomen for exposure. The uterus was then incised transversely at the lower uterine segment using scalpel and extended bluntly. Clear amniotic fluid was noted. 's head was brought to the hysterotomy and delivered atraumatically with fundal pressure. Shoulders and body were then delivered without any difficulties. Umbilical cord was clamped and cut after 30 seconds and no longer pulsating. Baby was pink, crying, and moving all extremities immediately after delivery. Nose and mouth were suctioned and then handed off to nursery staff. Cord gases were obtained. Placenta was delivered with gentle traction on the umbilical cord. Allis clamps were used to grasp the angles and lower edge of the incision. A clean lap was used to remove any remaining membranes in the endometrial cavity. The uterine incision was closed in a single layer with running, nonlocking fashion using 0 Monocryl. Uterus was firm, and hysterotomy was hemostatic. Pericolic gutters were cleared of any clots. The incision was again checked for hemostasis. The Brian retractor was then removed. The rectus muscles were examined and found to be hemostatic. The peritoneum was grasped by Seneca clamps and closed using 0 Vicryl in a running fashion. Fascia was then closed using two 0 Vicryl sutures in a running fashion. Subcutaneous tissue was irrigated and bleeding areas were cauterized. The subcutaneous layer was brought together with 0 chromic suture in running fashion. Skin was closed in subcuticular fashion using 3-0 Monocryl on a Chicho needle. Telfa and ABD dressing was placed over the incision. The patient was stable and transferred to recovery room. ARI VERONICA /[id number] JIL
[2019-04-27] MEDS ORDERED: Promethazine 25 MG/ML SDV IM PRN (08:24)
[2019-04-27] MEDS: Ketorolac 30 MG/ML SDV IVPUSH SCH ×3 (08:43→20:59)
--- NOTE | 2019-04-27 09:07 | PCM48HPAN ---
Post Anesthesia Note - EVALUATION WITHIN 48HRS OF ANESTHETIC Vital Signs in Normal Range: Yes Patient Participated in Evaluation: Yes Respiratory Function Stable: Yes Airway Patent: Yes Cardiovascular Function Stable: Yes Hydration Status Stable: Yes Pain Control Satisfactory: Yes Nausea and Vomiting Control Satisfactory: Yes Mental Status Recovered: Yes Vital Signs: Last Vital Signs Temp 36.2 C 04/27/19 03:26 Pulse 66 04/27/19 04:02 Resp 16 04/27/19 05:46 BP 107/62 04/27/19 04:02 Pulse Ox 96 04/27/19 05:46
[2019-04-27] MEDS: Docusate Sodium 100 MG Cap PO SCH (21:00)
[2019-04-28] MEDS: Ketorolac 30 MG/ML SDV IVPUSH SCH (03:16)
[2019-04-28] MEDS: Lanolin 100% Cream 7 GM Tube TOP PRN ×2 (06:23→11:08)
--- NOTE | 2019-04-28 08:04 | PCM.PNPP ---
- General Info Date of Service: 04/28/19 Subjective Update: and supplementing, pain is well controlled, minimal lochia. Functional Status: Reports: Pain Controlled, Tolerating Diet, Ambulating, Urinating - Review of Systems General: Reports: No Symptoms HEENT: Reports: No Symptoms Pulmonary: Reports: No Symptoms Cardiovascular: Reports: No Symptoms Gastrointestinal: Reports: No Symptoms Genitourinary: Reports: No Symptoms Musculoskeletal: Reports: No Symptoms Skin: Reports: No Symptoms Neurological: Reports: No Symptoms Psychiatric: Reports: No Symptoms - Patient Data Vital Signs - Most Recent: Last Vital Signs Temp 36.3 C 04/28/19 04:20 Pulse 62 04/28/19 04:20 Resp 16 04/28/19 04:20 BP 96/59 L 04/28/19 04:20 Pulse Ox 96 04/28/19 04:20 Weight - Most Recent: 74.389 kg I&O - Last 24 Hours: Intake & Output 04/27/19 04/28/19 04/28/19 22:59 06:59 14:59 Output Total 975 Balance -975 Lab Results - Last 24 Hours: Laboratory Results - last 24 hr 04/28/19 Range/Units 06:22 Hgb 8.9 L (12.0-16.0) g/dL Hct 26.9 L (36.0-46.0) % Med Orders - Current: Current Medications Bisacodyl (Dulcolax) 10 mg RECTAL ONETIME PRN PRN Reason: Constipation Diphenhydramine HCl (Benadryl) 25 mg IVPUSH Q6H PRN PRN Reason: Itching or Nausea Last Admin: 04/27/19 08:21 Dose: 25 mg Docusate Sodium (Colace) 100 mg PO BID EPIFANIO Last Admin: 04/27/19 21:00 Dose: 100 mg Emollient Ointment (Lansinoh Hpa) 0 gm TOP ASDIRECTED PRN PRN Reason: Sore Nipples Last Admin: 04/28/19 06:23 Dose: 1 tube Oxytocin/Sodium Chloride (Oxytocin 30 Unit/500 Ml-Ns) 30 unit in 500 mls @ 250 mls/hr IV TITRATE EPIFANIO Tranexamic Acid 1,000 mg/ (Sodium Chloride) 110 mls @ 660 mls/hr IV ONETIME PRN PRN Reason: Bleeding Lactated Ringer's (Ringers, Lactated) 1,000 mls @ 125 mls/hr IV ASDIRECTED EPIFANIO Last Admin: 04/27/19 08:21 Dose: 125 mls/hr Ibuprofen (Motrin) 800 mg PO Q8H PRN PRN Reason: mild pain or fever Methylergonovine Maleate (Methergine) 0.2 mg IM ONETIME PRN PRN Reason: Excessive Vaginal Bleeding Misoprostol (Cytotec) 1,000 mcg RECTAL ONETIME PRN PRN Reason: excessive bleeding Ondansetron HCl (Zofran) 4 mg IVPUSH Q4H PRN PRN Reason: Nausea Last Admin: 04/27/19 06:40 Dose: 4 mg Oxycodone/Acetaminophen (Percocet 325-5 Mg) 1 tab PO ONETIME PRN PRN Reason: Pain (moderate 4-6) Oxycodone/Acetaminophen (Percocet 325-5 Mg) 1 tab PO Q4H PRN PRN Reason: Pain (moderate 4-6) Last Admin: 04/28/19 06:15 Dose: 1 tab Oxycodone/Acetaminophen (Percocet 325-5 Mg) 2 tab PO Q4H PRN PRN Reason: Pain (moderate 4-6) Promethazine HCl (Phenergan) 25 mg IM Q6H PRN PRN Reason: Nausea/Vomiting Sodium Chloride (Saline Flush) 10 ml FLUSH ASDIRECTED PRN PRN Reason: Keep Vein Open Sodium Chloride (Saline Flush) 2.5 ml FLUSH ASDIRECTED PRN PRN Reason: Keep Vein Open Sodium Chloride (Normal Saline) 10 ml IV ASDIRECTED PRN PRN Reason: IV Use Sodium Chloride (Saline Flush) 2.5 ml FLUSH ASDIRECTED PRN PRN Reason: Keep Vein Open Discontinued Medications Cefazolin Sodium/Dextrose (Ancef) Confirm Administered Dose 2 gm IV .STK-MED ONE Stop: 04/27/19 02:32 Citric Acid/Sodium Citrate (Bicitra Solution) 30 ml PO ONETIME ONE Stop: 04/27/19 01:06 Last Admin: 04/27/19 01:59 Dose: 30 ml Fentanyl (Sublimaze) 50 mcg IVPUSH Q5M PRN PRN Reason: Pain (severe 7-10) Stop: 04/28/19 01:53 Fentanyl (Sublimaze) Confirm Administered Dose 100 mcg .ROUTE .STK-MED ONE Stop: 04/27/19 02:46 Cefazolin Sodium/Dextrose 2 gm (/ Premix) 50 mls @ 100 mls/hr IV ONETIME ONE Stop: 04/27/19 01:34 Lactated Ringer's (Ringers, Lactated) 1,000 mls @ 500 mls/hr IV BOLUS EPIFANIO Last Admin: 04/27/19 01:39 Dose: 500 mls/hr Ketorolac Tromethamine (Toradol) 30 mg IVPUSH Q6H EPIFANIO Stop: 04/28/19 03:01 Last Admin: 04/28/19 03:16 Dose: 30 mg Morphine Sulfate (Duramorph Pf) Confirm Administered Dose 10 mg .ROUTE .STK-MED ONE Stop: 04/27/19 01:53 Nalbuphine HCl (Nubain) 2.5 mg IVPUSH Q3H PRN PRN Reason: Pruritis Stop: 04/28/19 01:54 Last Admin: 04/27/19 21:33 Dose: 2.5 mg Ondansetron HCl (Zofran) Confirm Administered Dose 4 mg .ROUTE .STK-MED ONE Stop: 04/27/19 01:50 Oxytocin (Pitocin) Confirm Administered Dose 20 unit .ROUTE .STK-MED ONE Stop: 04/27/19 01:50 Phenylephrine HCl (Phenylephrine In Ns 100 Mcg/Ml) Confirm Administered Dose 1 mg .ROUTE .STK-MED ONE Stop: 04/27/19 02:32 Sodium Chloride (Saline Flush) 10 ml FLUSH ASDIRECTED PRN PRN Reason: Keep Vein Open - Infant Interaction Disposition, : [place] in Room with Family Interaction: Holding Infant Infant Feeding: Attempted ; Nursed Fair/Poor Support Person: Significant Other - Recovery Exam Fundal Tone: Firm Fundal Level: 2 Fingerbreadths Below Umbilicus Fundal Placement: Midline Lochia Amount: Scant Lochia Color: Rubra/Red Perineum Description: Intact, Minimal Bruising/Swelling Episiotomy/Laceration: None Bladder Status: Indwelling Catheter in Place Urinary Elimination: Indwelling Catheter - Exam General: Alert, Oriented HEENT: Pupils Equal Neck: Supple Lungs: Clear to Auscultation, Normal Respiratory Effort Cardiovascular: Regular Rate, Regular Rhythm GI/Abdominal Exam: Normal Bowel Sounds, Soft, Non-Tender, No Organomegaly, No Distention Extremities: Normal Inspection, Non-Tender, No Pedal Edema Skin: Warm, Dry, Intact Wound/Incisions: Dressing Dry and Intact Neurological: No New Focal Deficit Psy/Mental Status: Alert, Normal Affect, Normal Mood - Problem List & Annotations (1) delivery delivered SNOMED Code(s): 565605277 Code(s): O82 - ENCOUNTER FOR DELIVERY WITHOUT INDICATION Status: Acute Current Visit: No - Problem List Review Problem List Initiated/Reviewed/Updated: Yes - My Orders Last 24 Hours: My Active Orders 04/27/19 08:24 Promethazine [Phenergan] 25 mg IM Q6H PRN - Assessment Assessment:: POD#1 after , stable, minimal lochia. Will ambulate, shower, remove dressings today. Anticipate home tomorrow. - Plan Plan:: Continue care.
[2019-04-28] MEDS: Acetaminophen/oxyCODONE 325-5 MG Tab PO PRN ×3 (11:09→22:02)
[2019-04-28] MEDS: Docusate Sodium 100 MG Cap PO SCH ×3 (11:09→20:53)
[2019-04-28] MEDS: Ibuprofen 800 MG Tab PO PRN ×2 (15:38→23:54)
[2019-04-29] MEDS: Acetaminophen/oxyCODONE 325-5 MG Tab PO PRN ×3 (04:15→21:46)
[2019-04-29] MEDS: Ibuprofen 800 MG Tab PO PRN ×2 (07:53→20:03)
--- NOTE | 2019-04-29 08:43 | PCM.PNPP ---
- General Info Date of Service: 04/29/19 Functional Status: Reports: Pain Controlled, Tolerating Diet, Ambulating, Urinating - Review of Systems General: Reports: No Symptoms HEENT: Reports: No Symptoms Pulmonary: Reports: No Symptoms Cardiovascular: Reports: No Symptoms Gastrointestinal: Reports: No Symptoms Genitourinary: Reports: No Symptoms Musculoskeletal: Reports: No Symptoms Skin: Reports: No Symptoms Neurological: Reports: No Symptoms Psychiatric: Reports: No Symptoms - Patient Data Vital Signs - Most Recent: Last Vital Signs Temp 37.0 C 04/29/19 07:16 Pulse 60 04/29/19 07:16 Resp 16 04/29/19 07:16 BP 93/55 L 04/29/19 07:16 Pulse Ox 95 04/29/19 07:16 Weight - Most Recent: 74.389 kg Med Orders - Current: Current Medications Bisacodyl (Dulcolax) 10 mg RECTAL ONETIME PRN PRN Reason: Constipation Diphenhydramine HCl (Benadryl) 25 mg IVPUSH Q6H PRN PRN Reason: Itching or Nausea Last Admin: 04/27/19 08:21 Dose: 25 mg Docusate Sodium (Colace) 100 mg PO BID EPIFANIO Last Admin: 04/28/19 20:53 Dose: 100 mg Emollient Ointment (Lansinoh Hpa) 0 gm TOP ASDIRECTED PRN PRN Reason: Sore Nipples Last Admin: 04/28/19 11:08 Dose: 1 tube Oxytocin/Sodium Chloride (Oxytocin 30 Unit/500 Ml-Ns) 30 unit in 500 mls @ 250 mls/hr IV TITRATE [facility] Tranexamic Acid 1,000 mg/ (Sodium Chloride) 110 mls @ 660 mls/hr IV ONETIME PRN PRN Reason: Bleeding Lactated Ringer's (Ringers, Lactated) 1,000 mls @ 125 mls/hr IV ASDIRECTED EPIFANIO Last Admin: 04/27/19 08:21 Dose: 125 mls/hr Ibuprofen (Motrin) 800 mg PO Q8H PRN PRN Reason: mild pain or fever Last Admin: 04/29/19 07:53 Dose: 800 mg Methylergonovine Maleate (Methergine) 0.2 mg IM ONETIME PRN PRN Reason: Excessive Vaginal Bleeding Misoprostol (Cytotec) 1,000 mcg RECTAL ONETIME PRN PRN Reason: excessive bleeding Ondansetron HCl (Zofran) 4 mg IVPUSH Q4H PRN PRN Reason: Nausea Last Admin: 04/27/19 06:40 Dose: 4 mg Oxycodone/Acetaminophen (Percocet 325-5 Mg) 1 tab PO ONETIME PRN PRN Reason: Pain (moderate 4-6) Last Admin: 04/29/19 07:53 Dose: 1 tab Oxycodone/Acetaminophen (Percocet 325-5 Mg) 1 tab PO Q4H PRN PRN Reason: Pain (moderate 4-6) Last Admin: 04/28/19 06:15 Dose: 1 tab Oxycodone/Acetaminophen (Percocet 325-5 Mg) 2 tab PO Q4H PRN PRN Reason: Pain (moderate 4-6) Last Admin: 04/29/19 04:15 Dose: 2 tab Promethazine HCl (Phenergan) 25 mg IM Q6H PRN PRN Reason: Nausea/Vomiting Sodium Chloride (Saline Flush) 10 ml FLUSH ASDIRECTED PRN PRN Reason: Keep Vein Open Sodium Chloride (Saline Flush) 2.5 ml FLUSH ASDIRECTED PRN PRN Reason: Keep Vein Open Sodium Chloride (Normal Saline) 10 ml IV ASDIRECTED PRN PRN Reason: IV Use Sodium Chloride (Saline Flush) 2.5 ml FLUSH ASDIRECTED PRN PRN Reason: Keep Vein Open Discontinued Medications Cefazolin Sodium/Dextrose (Ancef) Confirm Administered Dose 2 gm IV .STK-MED ONE Stop: 04/27/19 02:32 Citric Acid/Sodium Citrate (Bicitra Solution) 30 ml PO ONETIME ONE Stop: 04/27/19 01:06 Last Admin: 04/27/19 01:59 Dose: 30 ml Fentanyl (Sublimaze) 50 mcg IVPUSH Q5M PRN PRN Reason: Pain (severe 7-10) Stop: 04/28/19 01:53 Fentanyl (Sublimaze) Confirm Administered Dose 100 mcg .ROUTE .STK-MED ONE Stop: 04/27/19 02:46 Cefazolin Sodium/Dextrose 2 gm (/ Premix) 50 mls @ 100 mls/hr IV ONETIME ONE Stop: 04/27/19 01:34 Last Admin: 04/28/19 20:05 Dose: Not Given Lactated Ringer's (Ringers, Lactated) 1,000 mls @ 500 mls/hr IV BOLUS EPIFANIO Last Admin: 04/27/19 01:39 Dose: 500 mls/hr Ketorolac Tromethamine (Toradol) 30 mg IVPUSH Q6H EPIFANIO Stop: 04/28/19 03:01 Last Admin: 04/28/19 03:16 Dose: 30 mg Morphine Sulfate (Duramorph Pf) Confirm Administered Dose 10 mg .ROUTE .STK-MED ONE Stop: 04/27/19 01:53 Nalbuphine HCl (Nubain) 2.5 mg IVPUSH Q3H PRN PRN Reason: Pruritis Stop: 04/28/19 01:54 Last Admin: 04/27/19 21:33 Dose: 2.5 mg Ondansetron HCl (Zofran) Confirm Administered Dose 4 mg .ROUTE .STK-MED ONE Stop: 04/27/19 01:50 Oxytocin (Pitocin) Confirm Administered Dose 20 unit .ROUTE .STK-MED ONE Stop: 04/27/19 01:50 Phenylephrine HCl (Phenylephrine In Ns 100 Mcg/Ml) Confirm Administered Dose 1 mg .ROUTE .STK-MED ONE Stop: 04/27/19 02:32 Sodium Chloride (Saline Flush) 10 ml FLUSH ASDIRECTED PRN PRN Reason: Keep Vein Open - Infant Interaction Infant Disposition, : [place] in Room with Family Infant Interaction: Holding Infant Infant Feeding: Attempted ; Nursed Fair/Poor Support Person: Significant Other - Recovery Exam Fundal Tone: Firm Fundal Level: 1 Fingerbreadths Below Umbilicus Fundal Placement: Midline Lochia Amount: Scant Lochia Color: Rubra/Red Perineum Description: Intact, Minimal Bruising/Swelling Episiotomy/Laceration: None Bladder Status: Nonpalpable Urinary Elimination: Not Voiding - Exam HEENT: Pupils Equal Neck: Supple Lungs: Normal Respiratory Effort GI/Abdominal Exam: Soft, Non-Tender, No Organomegaly, No Distention Extremities: Normal Inspection, Non-Tender, No Pedal Edema Skin: Warm, Dry, Intact Wound/Incisions: Healing Well Neurological: No New Focal Deficit Psy/Mental Status: Alert, Normal Affect, Normal Mood - Problem List & Annotations (1) delivery delivered SNOMED Code(s): 347789580 Code(s): O82 - ENCOUNTER FOR DELIVERY WITHOUT INDICATION Status: Acute Current Visit: No - Problem List Review Problem List Initiated/Reviewed/Updated: Yes - My Orders Last 24 Hours: My Active Orders 04/29/19 08:39 Ready for Discharge [RC] PER UNIT ROUTINE - Assessment Assessment:: POD#2 after repeat , stable, minimal lochia. Working on pain management with oral medications, is going well. Will go home today if pain is controlled. - Plan Plan:: Anticipate discharge to home. Discharge instructions reviewed.
[2019-04-29] MEDS: Docusate Sodium 100 MG Cap PO SCH ×2 (20:25→20:59)
[2019-04-30] MEDS: Acetaminophen/oxyCODONE 325-5 MG Tab PO PRN (01:58)
[2019-04-30] MEDS: Ibuprofen 800 MG Tab PO PRN (05:15)
[2019-04-30] MEDS ORDERED: Simethicone 80 MG Tab.Chew PO PRN (07:59)
[2019-04-30] MEDS ORDERED: Bisacodyl 10 MG Supp RECTAL ONE (07:59)
--- NOTE | 2019-04-30 08:01 | PCM.PNPP ---
- General Info Date of Service: 04/30/19 Functional Status: Reports: Pain Controlled, Tolerating Diet, Ambulating, Urinating (some gas pain, has passed flatus, but still feels a little distended) - Review of Systems General: Reports: No Symptoms HEENT: Reports: No Symptoms Pulmonary: Reports: No Symptoms Cardiovascular: Reports: No Symptoms Gastrointestinal: Reports: No Symptoms Genitourinary: Reports: No Symptoms Musculoskeletal: Reports: No Symptoms Skin: Reports: No Symptoms Neurological: Reports: No Symptoms Psychiatric: Reports: No Symptoms - General Info Date of Service: 04/30/19 - Patient Data Vital Signs - Most Recent: Last Vital Signs Temp 36.4 C 04/30/19 07:29 Pulse 61 04/30/19 07:29 Resp 16 04/30/19 07:29 BP 99/59 L 04/30/19 07:29 Pulse Ox 97 04/30/19 07:29 Weight - Most Recent: 74.389 kg Med Orders - Current: Current Medications Bisacodyl (Dulcolax) 10 mg RECTAL ONETIME PRN PRN Reason: Constipation Diphenhydramine HCl (Benadryl) 25 mg IVPUSH Q6H PRN PRN Reason: Itching or Nausea Last Admin: 04/27/19 08:21 Dose: 25 mg Docusate Sodium (Colace) 100 mg PO BID [facility] Last Admin: 04/29/19 20:59 Dose: 100 mg Emollient Ointment (Lansinoh Hpa) 0 gm TOP ASDIRECTED PRN PRN Reason: Sore Nipples Last Admin: 04/28/19 11:08 Dose: 1 tube Oxytocin/Sodium Chloride (Oxytocin 30 Unit/500 Ml-Ns) 30 unit in 500 mls @ 250 mls/hr IV TITRATE [facility] Tranexamic Acid 1,000 mg/ (Sodium Chloride) 110 mls @ 660 mls/hr IV ONETIME PRN PRN Reason: Bleeding Lactated Ringer's (Ringers, Lactated) 1,000 mls @ 125 mls/hr IV ASDIRECTED [facility] Last Admin: 04/27/19 08:21 Dose: 125 mls/hr Ibuprofen (Motrin) 800 mg PO Q8H PRN PRN Reason: mild pain or fever Last Admin: 04/30/19 05:15 Dose: 800 mg Methylergonovine Maleate (Methergine) 0.2 mg IM ONETIME PRN PRN Reason: Excessive Vaginal Bleeding Misoprostol (Cytotec) 1,000 mcg RECTAL ONETIME PRN PRN Reason: excessive bleeding Ondansetron HCl (Zofran) 4 mg IVPUSH Q4H PRN PRN Reason: Nausea Last Admin: 04/27/19 06:40 Dose: 4 mg Oxycodone/Acetaminophen (Percocet 325-5 Mg) 1 tab PO ONETIME PRN PRN Reason: Pain (moderate 4-6) Last Admin: 04/29/19 07:53 Dose: 1 tab Oxycodone/Acetaminophen (Percocet 325-5 Mg) 1 tab PO Q4H PRN PRN Reason: Pain (moderate 4-6) Last Admin: 04/28/19 06:15 Dose: 1 tab Oxycodone/Acetaminophen (Percocet 325-5 Mg) 2 tab PO Q4H PRN PRN Reason: Pain (moderate 4-6) Last Admin: 04/30/19 01:58 Dose: 2 tab Promethazine HCl (Phenergan) 25 mg IM Q6H PRN PRN Reason: Nausea/Vomiting Sodium Chloride (Saline Flush) 10 ml FLUSH ASDIRECTED PRN PRN Reason: Keep Vein Open Sodium Chloride (Saline Flush) 2.5 ml FLUSH ASDIRECTED PRN PRN Reason: Keep Vein Open Sodium Chloride (Normal Saline) 10 ml IV ASDIRECTED PRN PRN Reason: IV Use Sodium Chloride (Saline Flush) 2.5 ml FLUSH ASDIRECTED PRN PRN Reason: Keep Vein Open Discontinued Medications Cefazolin Sodium/Dextrose (Ancef) Confirm Administered Dose 2 gm IV .STK-MED ONE Stop: 04/27/19 02:32 Citric Acid/Sodium Citrate (Bicitra Solution) 30 ml PO ONETIME ONE Stop: 04/27/19 01:06 Last Admin: 04/27/19 01:59 Dose: 30 ml Fentanyl (Sublimaze) 50 mcg IVPUSH Q5M PRN PRN Reason: Pain (severe 7-10) Stop: 04/28/19 01:53 Fentanyl (Sublimaze) Confirm Administered Dose 100 mcg .ROUTE .STK-MED ONE Stop: 04/27/19 02:46 Cefazolin Sodium/Dextrose 2 gm (/ Premix) 50 mls @ 100 mls/hr IV ONETIME ONE Stop: 04/27/19 01:34 Last Admin: 04/28/19 20:05 Dose: Not Given Lactated Ringer's (Ringers, Lactated) 1,000 mls @ 500 mls/hr IV BOLUS [facility] Last Admin: 04/27/19 01:39 Dose: 500 mls/hr Ketorolac Tromethamine (Toradol) 30 mg IVPUSH Q6H EPIFANIO Stop: 04/28/19 03:01 Last Admin: 04/28/19 03:16 Dose: 30 mg Morphine Sulfate (Duramorph Pf) Confirm Administered Dose 10 mg .ROUTE .STK-MED ONE Stop: 04/27/19 01:53 Nalbuphine HCl (Nubain) 2.5 mg IVPUSH Q3H PRN PRN Reason: Pruritis Stop: 04/28/19 01:54 Last Admin: 04/27/19 21:33 Dose: 2.5 mg Ondansetron HCl (Zofran) Confirm Administered Dose 4 mg .ROUTE .STK-MED ONE Stop: 04/27/19 01:50 Oxytocin (Pitocin) Confirm Administered Dose 20 unit .ROUTE .STK-MED ONE Stop: 04/27/19 01:50 Phenylephrine HCl (Phenylephrine In Ns 100 Mcg/Ml) Confirm Administered Dose 1 mg .ROUTE .STK-MED ONE Stop: 04/27/19 02:32 Sodium Chloride (Saline Flush) 10 ml FLUSH ASDIRECTED PRN PRN Reason: Keep Vein Open - Infant Interaction Disposition, : in Room with Family Interaction: Holding Infant Feeding: Attempted ; Nursed Fair/Poor Support Person: Significant Other - Recovery Exam Fundal Tone: Firm Fundal Level: 1 Fingerbreadths Below Umbilicus Fundal Placement: Midline Lochia Amount: Scant Lochia Color: Rubra/Red Perineum Description: Intact, Minimal Bruising/Swelling Episiotomy/Laceration: None Bladder Status: Voiding Urinary Elimination: Not Voiding - Exam General: Alert, Oriented HEENT: Pupils Equal Neck: Supple Lungs: Normal Respiratory Effort GI/Abdominal Exam: Normal Bowel Sounds, Soft, Non-Tender, No Mass. No: No Distention (mild) Extremities: Normal Range of Motion, Non-Tender. No: No Pedal Edema (trace) Skin: Warm, Dry, Intact Wound/Incisions: Healing Well Neurological: No New Focal Deficit - Problem List & Annotations (1) delivery delivered SNOMED Code(s): 252862227 Code(s): O82 - ENCOUNTER FOR DELIVERY WITHOUT INDICATION Status: Acute Current Visit: No - Problem List Review Problem List Initiated/Reviewed/Updated: Yes - My Orders Last 24 Hours: My Active Orders 04/29/19 08:39 Ready for Discharge [RC] PER UNIT ROUTINE 04/30/19 07:59 Bisacodyl [Dulcolax] 10 mg RECTAL ONETIME ONE Simethicone 80 mg PO Q4H PRN - Assessment Assessment:: POD#3 after repeat , stable, minimal lochia. May use simethicone and dulcolax for gas pain. Dismiss to home today. - Plan Plan:: Discharge instructions reviewed.
[2019-04-30] MEDS: Docusate Sodium 100 MG Cap PO SCH (08:43)
== END 2019-04-30 13:15 | disposition home or self-care (01) | DRG 540 ==
LOC: MW.OB 00:17 → OBSVTOIN 03:52
PROVIDERS: ADMIT Obstetrics & Gynecology; ATTEND Obstetrics & Gynecology
PROC: 10D00Z1 Extraction of Products of Conception, Low, Open Approach (ICD-10-PCS; principal; 2019-04-27)
DX: O34.211 Maternal care for low transverse scar from previous cesarean delivery (principal); Z3A.38 38 weeks gestation of pregnancy; Z37.0 Single live birth; O99.824 Streptococcus B carrier state complicating childbirth; Z79.899 Other long term (current) drug therapy
CPT/HCPCS: 01961; 36415; 59025; 85014; 85018; 85027; 86850; 86900; 86901; A9270-GY; J0690; J1200; J1885; J2270; J2300; J2370; J2405; J2590; J3010; J7120

== ENCOUNTER 2021-04-06 12:50 | Emergency (ER) | payer BC ==
[2021-04-06] MEDS ORDERED: Sodium Chloride 0.9% 1,000 ML IV ONE (13:29)
[2021-04-06] MEDS ORDERED: Metoclopramide 10 MG/2 ML SDV IVPUSH ONE (13:29)
[2021-04-06] MEDS ORDERED: diphenhydrAMINE 50 MG/ML SDV IVPUSH ONE (13:29)
--- NOTE | 2021-04-06 13:32 | EDM.PDOC ---
ED HPI GENERAL MEDICAL PROBLEM - General Chief Complaint: Headache Stated Complaint: PT HAD SX 2 DAYS AGO/ MIGRAINE/THROWING UP Time Seen by Provider: 04/06/21 12:54 Source of Information: Reports: Patient History Limitations: Reports: No Limitations - History of Present Illness INITIAL COMMENTS - FREE TEXT/NARRATIVE: Patient is a 35-year-old female who recently had a eyelid procedure done in [place] presents today for increased headache. She has pain pills at home states are not controlling her headache. She rarely gets headaches that is more intense. Headaches been present since yesterday. She denies any vision changes any numbness weakness or extremities. Patient denies any nausea vomiting but has had decreased p.o. intake has not been eating much per her . She feels weak and tired well on exam. Bilateral Head Pain Score (Numeric/FACES): 10 - Related Data Allergies Allergy/AdvReac Type Severity Reaction Status Date / Time No Known Allergies Allergy Verified 12/15/17 11:35 Home Meds: Home Meds Ondansetron [Zofran] 4 mg PO Q6H 04/05/19 [History] Pnv No.95/Ferrous Fum/Folic AC [ Caplet] 1 each PO DAILY 04/05/19 [History] Acetaminophen/oxyCODONE [Percocet 325-5 MG] 1 tab PO Q4H PRN #20 tablet 04/29/19 [Rx] Ibuprofen [Motrin] 800 mg PO Q8H PRN #30 tablet 04/29/19 [Rx] Past Medical History HEENT History: Reports: Other (See Below) Other HEENT History: wears glasses Gastrointestinal History: Reports: GERD Genitourinary History: Reports: None [employer] History: Reports: Neurological History: Reports: Migraines - Infectious Disease History Infectious Disease History: Reports: Chicken Pox - Past Surgical History Head Surgeries/Procedures: Reports: None Female Surgical History: Reports: Breast Implant, Section Social & Family History - Family History Cardiac: Reports: Hypertension, Other (See Below) Other Cardiac Family History: Heart disease Endocrine/Metabolic: Reports: Diabetes, type II - Caffeine Use Caffeine Use: Reports: Coffee, Soda ED ROS GENERAL - Review of Systems Review Of Systems: See Below Constitutional: Reports: No Symptoms HEENT: Reports: No Symptoms Respiratory: Reports: No Symptoms Cardiovascular: Reports: No Symptoms Endocrine: Reports: No Symptoms GI/Abdominal: Reports: No Symptoms : Reports: No Symptoms Musculoskeletal: Reports: No Symptoms Skin: Reports: No Symptoms Neurological: Reports: Headache Psychiatric: Reports: No Symptoms Hematologic/Lymphatic: Reports: No Symptoms Immunologic: Reports: No Symptoms - Physical Exam Exam: See Below Exam Limited By: No Limitations General Appearance: Alert, WD/WN, No Apparent Distress Eye Exam: Bilateral Eye: EOMI, PERRL, Other (Swelling and sutures to bilateral eyelids) Head Exam: Atraumatic Respiratory/Chest: No Respiratory Distress, Lungs Clear Cardiovascular: Normal Peripheral Pulses, No Rub GI/Abdominal: Normal Bowel Sounds, Soft, Non-Tender Neuro Exam (Abbreviated): Alert, Oriented, CN II-XII Intact, Normal Cognition, Normal Gait Course - Vital Signs Last Recorded V/S: Last Vital Signs Temp 98.7 F 04/06/21 13:18 Pulse 90 04/06/21 15:05 Resp 18 04/06/21 15:05 BP 136/82 04/06/21 15:05 Pulse Ox 100 04/06/21 15:05 - Orders/Labs/Meds Labs: Laboratory Tests 04/06/21 04/06/21 Range/Units 14:00 14:00 WBC 7.50 (4.0-11.0) K/uL RBC 4.31 (4.30-5.90) M/uL Hgb 13.5 (12.0-16.0) g/dL Hct 37.4 (36.0-46.0) % MCV 86.8 (80.0-98.0) fL MCH 31.3 (27.0-32.0) pg MCHC 36.1 (31.0-37.0) g/dL RDW Std Deviation 37.7 (28.0-62.0) fl RDW Coeff of Jewell 12 (11.0-15.0) % Plt Count 211 (150-400) K/uL MPV 9.70 (7.40-12.00) fL Neut % (Auto) 77.3 (48.0-80.0) % Lymph % (Auto) 16.5 (16.0-40.0) % Branch % (Auto) 5.9 (0.0-15.0) % Eos % (Auto) 0.3 (0.0-7.0) % Baso % (Auto) 0.0 (0.0-1.5) % Neut # (Auto) 5.8 H (1.4-5.7) K/uL Lymph # (Auto) 1.2 (0.6-2.4) K/uL Branch # (Auto) 0.4 (0.0-0.8) K/uL Eos # (Auto) 0.0 (0.0-0.7) K/uL Baso # (Auto) 0.0 (0.0-0.1) K/uL Nucleated RBC % 0.0 /100WBC Nucleated RBCs # 0 K/uL Sodium 138 (136-145) mmol/L Potassium 4.1 (3.5-5.1) mmol/L Chloride 103 (98-107) mmol/L Carbon Dioxide 27.0 (21.0-32.0) mmol/L BUN 9 (7.0-18.0) mg/dL Creatinine 0.8 (0.6-1.0) mg/dL Est Cr Clr Drug Dosing 86.64 mL/min Estimated GFR (MDRD) > 60.0 ml/min Glucose 92 (74-106) mg/dL Calcium 8.5 (8.5-10.1) mg/dL Meds: Medications Discontinued Medications Generic Name Dose Route Start Last Admin Trade Name J Luisq PRN Reason Stop Dose Admin Diphenhydramine HCl 25 mg 04/06/21 13:29 04/06/21 14:00 Diphenhydramine 50 Mg/Ml Sdv IVPUSH 04/06/21 13:30 25 mg ONETIME ONE Administration Sodium Chloride 1,000 mls @ 999 mls/hr 04/06/21 13:29 04/06/21 14:00 Normal Saline IV 04/06/21 14:29 999 mls/hr .BOLUS ONE Administration Ketorolac Tromethamine 30 mg 04/06/21 14:37 04/06/21 14:59 Ketorolac 30 Mg/Ml Sdv IVPUSH 04/06/21 14:38 30 mg ONETIME ONE Administration Metoclopramide HCl 10 mg 04/06/21 13:29 04/06/21 14:00 Metoclopramide 10 Mg/2 Ml Sdv IVPUSH 04/06/21 13:30 10 mg ONETIME ONE Administration - Re-Assessments/Exams Free Text/Narrative Re-Assessment/Exam: 04/06/21 16:03 Patient pain improved with the Toradol. Patient pain is likely due to the swelling from the surgery. Patient had no neurological planes on exam no signs of infection will be discharged home to follow-up with her positive surgeon. Departure - Departure Time of Disposition: 16:03 Disposition: Home, Self-Care 01 Condition: Good Clinical Impression: Post-op pain - Discharge Information *PRESCRIPTION DRUG MONITORING PROGRAM REVIEWED*: Not Applicable *COPY OF PRESCRIPTION DRUG MONITORING REPORT IN PATIENT RANJAN: Not Applicable Instructions: Managing Pain Without Opioids Referrals: Kalin Edwards MD [Primary Care Provider] - Forms: ED Department Discharge Additional Instructions: The following information is given to patients seen in the emergency department who are being discharged to home. This information is to outline your options for follow-up care. We provide all patients seen in our emergency department with a follow-up referral. The need for follow-up, as well as the timing and circumstances, are variable depending upon the specifics of your emergency department visit. If you don't have a primary care physician on staff, we will provide you with a referral. We always advise you to contact your personal physician following an emergency department visit to inform them of the circumstance of the visit and for follow-up with them and/or the need for any referrals to a consulting specialist. The emergency department will also refer you to a specialist when appropriate. This referral assures that you have the opportunity for follow-up care with a specialist. All of these measure are taken in an effort to provide you with optimal care, which includes your follow-up. Under all circumstances we always encourage you to contact your private physician who remains a resource for coordinating your care. When calling for follow-up care, please make the office aware that this follow-up is from your recent emergency room visit. If for any reason you are refused follow-up, please contact the [facility] Emergency Department at and asked to speak to the emergency department charge nurse. Please follow up with your primary care physician. If you do not have a primary care physician, see below: [facility] [address] [place] [id number] [facility] [address] [place] [address] You are seen today for pain in your head after a procedure. We believe the pain is related to the procedure there is some swelling around the area but no signs of any fluctuance or abscess no signs of infection. We sent home with some pain medicine will help out the pain and swelling. Sepsis Event Note (ED) - Focused Exam Vital Signs: Vital Signs Temp Pulse Resp BP Pulse Ox 04/06/21 15:05 90 18 136/82 100 04/06/21 14:30 86 19 132/84 98 04/06/21 14:00 90 19 128/88 100 04/06/21 13:18 98.7 F 88 18 134/94 H 100 - Assessment/Plan Plan: Patient is a 35-year-old female presents today for increased headache after a cosmetic procedure. Patient sutures look well with no redness or drainage. Patient not be eating much after the surgery will provide IV fluids and Reglan Benadryl.
[2021-04-06 14:21] LABS: BLOOD UREA NITROGEN,BUN 9 mg/dL (7.0-18.0); CHLORIDE,CL 103 mmol/L (98-107); GLUCOSE RANDOM 92 mg/dL (74-106); POTASSIUM,K 4.1 mmol/L (3.5-5.1); SODIUM,NA 138 mmol/L (136-145)
[2021-04-06] MEDS ORDERED: Ketorolac 30 MG/ML SDV IVPUSH ONE (14:37)
== END 2021-04-06 16:14 | disposition home or self-care (01) ==
LOC: MW.ED 12:50
DX: G89.18 Other acute postprocedural pain (principal); R51.9 Headache, unspecified
CPT/HCPCS: 80048; 85025; 96374; 96375; 99283; J1200; J1885; J2765; J7030

== ENCOUNTER 2022-01-28 22:21 | Emergency (ER) | payer BC ==
[2022-01-28] MEDS ORDERED: Sodium Chloride 0.9% 10 ML Syringe FLUSH PRN (23:00)
[2022-01-28] MEDS ORDERED: Sodium Chloride 0.9% 2.5 ML Syringe FLUSH PRN (23:00)
[2022-01-28] MEDS ORDERED: Ketorolac 30 MG/ML SDV IVPUSH ONE (23:01)
[2022-01-28 23:27] LABS: CARBON DIOXIDE,CO2 28.6 mmol/L (21.0-32.0); POTASSIUM,K 4.2 mmol/L (3.5-5.1)
[2022-01-29] MEDS ORDERED: Lidocaine 5% 700 MG Patch TOP ONE (00:36)
[2022-01-29] MEDS ORDERED: Acetaminophen 325 MG Tab PO ONE (00:36)
== END 2022-01-29 00:54 | disposition home or self-care (01) ==
LOC: MW.ED 22:21
DX: M94.0 Chondrocostal junction syndrome [Tietze] (principal); K21.9 Gastro-esophageal reflux disease without esophagitis
CPT/HCPCS: 36415; 71046; 80053; 83690; 84484; 85025; 85379; 93005; 96374; 99285; A9270; J1885; J3490; 93010; 99284

== ENCOUNTER 2022-02-09 18:28 | Emergency (ER) | payer BC ==
[2022-02-09] MEDS ORDERED: Ketorolac 30 MG/ML SDV IM ONE (19:37)
== END 2022-02-09 21:00 | disposition home or self-care (01) ==
LOC: MW.ED 18:28
DX: S93.601A Unspecified sprain of right foot, initial encounter (principal); K21.9 Gastro-esophageal reflux disease without esophagitis; Z79.899 Other long term (current) drug therapy; X50.1XXA Overexertion from prolonged static or awkward postures, initial encounter
CPT/HCPCS: 73610; 73630; 96372; 99283; J1885

== ENCOUNTER 2022-02-19 08:50 | Day surgery (SDC) | payer BC ==
[~2022-02-19 08:50] MED LIST: Albuterol 0.083% 2.5 MG/3 ML Neb Soln NEB PRN; HYDROmorphone 1 MG/ML Syringe IVPUSH PRN; Lactated Ringers 1,000 ML IV SCH; Metoclopramide 10 MG/2 ML SDV IVPUSH PRN; Naloxone 0.4 MG/ML SDV IVPUSH PRN; Ondansetron 4 MG/2 ML SDV IVPUSH PRN; fentaNYL 50 MCG/ML SDV IVPUSH PRN
[2022-02-19 10:15] LABS: CARBON DIOXIDE,CO2 25.1 mmol/L (21.0-32.0); POTASSIUM,K 4.3 mmol/L (3.5-5.1)
[2022-02-19] MEDS ORDERED: Scopolamine 1.5 MG Transdermal Patch TOP ONE (10:26)
[2022-02-19] MEDS ORDERED: Lidocaine 2% 5 ML SDV ONE (10:43)
[2022-02-19] MEDS ORDERED: propofoL 0 ML ONE (10:43)
[2022-02-19] MEDS ORDERED: Rocuronium 100 MG/10 ML MDV ONE (10:44)
[2022-02-19] MEDS ORDERED: Ondansetron 4 MG/2 ML SDV ONE (10:49)
== END 2022-02-19 11:05 ==
LOC: MW.SDS 08:50
PROVIDERS: ATTEND Obstetrics & Gynecology
DX: U07.1 COVID-19 (principal); Z53.09 Procedure and treatment not carried out because of other contraindication
CPT/HCPCS: 36415; 80048; 84703; 85025; 86850; 86900; 86901; 87635; J7120; J0131; J0690; J2405; J2704; U0002

== ENCOUNTER 2022-03-25 10:23 | Inpatient (IN) | payer BC ==
[~2022-03-25 10:23] MED LIST changes: -Albuterol 0.083% 2.5 MG/3 ML Neb Soln NEB PRN; -HYDROmorphone 1 MG/ML Syringe IVPUSH PRN; +Ketamine 500 mg/10 ML MDV ONE; +Magnesium Sulfate (4.06 MEQ/ML) 5 GM/10 ML SDV ONE; -Metoclopramide 10 MG/2 ML SDV IVPUSH PRN; +Midazolam 1 MG/ML 2 ML SDV ONE; -Naloxone 0.4 MG/ML SDV IVPUSH PRN; -Ondansetron 4 MG/2 ML SDV IVPUSH PRN; +Rocuronium Bromide 50 MG/5 ML Syringe ONE; +fentaNYL 250 MCG/5 ML SDV ONE; -fentaNYL 50 MCG/ML SDV IVPUSH PRN; +propofoL 100 ML ONE
[2022-03-25] MEDS ORDERED: Ropivacaine 0.5% 5 MG/ML 30 ML SDV ONE (10:50)
[2022-03-25] MEDS ORDERED: Methylene Blue 50 MG/10 ML Ampule ONE (11:04)
[2022-03-25] MEDS ORDERED: Vasopressin 20 Units/1 ML MDV ONE (11:04)
[2022-03-25] MEDS ORDERED: Bupivacaine 0.25% 30 ML SDV ONE (11:05)
[2022-03-25] MEDS ORDERED: Bupivacaine 0.25%/EPINEPHrine 1:200,000 10 ML SDV ONE (11:05)
[2022-03-25] MEDS ORDERED: Albuterol 0.083% 2.5 MG/3 ML Neb Soln NEB PRN (11:21)
[2022-03-25] MEDS ORDERED: Metoclopramide 10 MG/2 ML SDV IVPUSH PRN (11:21)
[2022-03-25] MEDS ORDERED: Ondansetron 4 MG/2 ML SDV IVPUSH PRN ×2 (11:21→13:55)
[2022-03-25] MEDS ORDERED: Naloxone 0.4 MG/ML SDV IVPUSH PRN (11:21)
[2022-03-25] MEDS ORDERED: Scopolamine 1.5 MG Transdermal Patch ONE (11:23)
[2022-03-25] MEDS ORDERED: Scopolamine 1.5 MG Transdermal Patch TRDERM PRN (11:32)
[2022-03-25] MEDS ORDERED: Dexamethasone 4 MG/ML 5 ML MDV ONE (12:10)
[2022-03-25] MEDS ORDERED: ePHEDrine 50 MG/ML SDV ONE (12:10)
[2022-03-25] MEDS ORDERED: Glycopyrrolate 0.2 MG/ML SDV ONE (12:10)
[2022-03-25] MEDS ORDERED: Ketorolac 30 MG/ML SDV ONE (12:25)
[2022-03-25] MEDS ORDERED: Sugammadex Sodium 200 MG/2 ML VIAL ONE (12:25)
[2022-03-25] MEDS ORDERED: Ondansetron 4 MG/2 ML SDV ONE (12:25)
[2022-03-25] MEDS ORDERED: Acetaminophen/oxyCODONE 325-5 MG Tab PO PRN ×2 (13:55)
[2022-03-25] MEDS ORDERED: Promethazine 25 MG/ML SDV IM PRN (13:55)
[2022-03-25] MEDS ORDERED: Ketorolac 30 MG/ML SDV IVPUSH ONE (13:55)
[2022-03-25] MEDS: HYDROmorphone 1 MG/ML Syringe IVPUSH PRN ×2 (13:56→14:11)
[2022-03-25] MEDS: fentaNYL 50 MCG/ML SDV IVPUSH PRN ×2 (14:01→14:23)
[2022-03-25] MEDS: Ketorolac 30 MG/ML SDV IVPUSH SCH (18:18)
[2022-03-26] MEDS: Ketorolac 30 MG/ML SDV IVPUSH SCH ×4 (00:52→18:14)
[2022-03-26] MEDS: Acetaminophen/HYDROcodone 325-5 MG Tab PO PRN ×2 (16:42→20:33)
[2022-03-26] MEDS: Docusate Sodium 100 MG Cap PO SCH (20:33)
[2022-03-27] MEDS: Ketorolac 30 MG/ML SDV IVPUSH SCH ×3 (00:04→12:56)
[2022-03-27] MEDS: Acetaminophen/HYDROcodone 325-5 MG Tab PO PRN ×3 (04:45→14:01)
[2022-03-27] MEDS: Docusate Sodium 100 MG Cap PO SCH (09:01)
== END 2022-03-27 15:00 | disposition home or self-care (01) | DRG 519 ==
LOC: MW.SDS 10:23 → MW.MS 13:55
PROVIDERS: ADMIT Obstetrics & Gynecology; ATTEND Obstetrics & Gynecology
PROC: 0UB90ZZ Excision of Uterus, Open Approach (ICD-10-PCS; principal; 2022-03-25)
PROC: 3E030XZ Introduction of Vasopressor into Peripheral Vein, Open Approach (ICD-10-PCS; 2022-03-25)
DX: D25.9 Leiomyoma of uterus, unspecified (principal); K21.9 Gastro-esophageal reflux disease without esophagitis; N93.9 Abnormal uterine and vaginal bleeding, unspecified; Z98.890 Other specified postprocedural states; Z98.82 Breast implant status; Z79.1 Long term (current) use of non-steroidal anti-inflammatories (NSAID); Z79.899 Other long term (current) drug therapy; Z78.1 Physical restraint status
CPT/HCPCS: 00840; 36415; 64488; 81025; 85025; 86850; 86900; 86901; A9270-GY; C1765; J0131; J0690; J1100; J1170; J1885; J2250; J2405; J2704; J2795; J3010; J3475; J3490; J7120

== ENCOUNTER 2022-08-19 19:06 | Emergency (ER) | payer OTHER ==
[2022-08-19] MEDS ORDERED: Dexamethasone 10 MG/ML SDV IVPUSH ONE (21:03)
[2022-08-19] MEDS ORDERED: Sodium Chloride 0.9% 10 ML Syringe FLUSH PRN (21:03)
[2022-08-19] MEDS ORDERED: Sodium Chloride 0.9% 1,000 ML IV ONE (21:03)
[2022-08-19] MEDS ORDERED: Sodium Chloride 0.9% 2.5 ML Syringe FLUSH PRN (21:03)
[2022-08-19] MEDS ORDERED: Ketorolac 30 MG/ML SDV IVPUSH ONE (21:03)
[2022-08-19] MEDS ORDERED: diphenhydrAMINE 50 MG/ML SDV IVPUSH ONE (21:03)
[2022-08-19] MEDS ORDERED: Prochlorperazine 10 MG/2 ML SDV IVPUSH ONE (21:04)
== END 2022-08-19 23:57 | disposition home or self-care (01) ==
LOC: MW.ED 19:06
DX: J01.10 Acute frontal sinusitis, unspecified (principal); J10.1 Influenza due to other identified influenza virus with other respiratory manifestations; Z79.899 Other long term (current) drug therapy
CPT/HCPCS: 96361; 96374; 96375; 99283; J0780; J1100; J1200; J1885; J3490; J7030; 99284